=== PATIENT | female | born 1980 | race Caucasian/White ===

== ENCOUNTER 2021-11-04 18:55 | Emergency (ER) | payer OTHER, SELFPAY ==
[2021-11-04 19:13] VITALS: BP 154/93; PULSE 85; RESP 18; TEMP 36.7; O2SAT 96; BMI 46.7
--- NOTE | 2021-11-04 21:00 | ED.GENADULT ---
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 She noted that the rash is circular and has been growing. She does not report fevers, chills, diaphoresis or weakness. Onset (ago): day(s) (1) Location: right and lower extremity Radiation: non-radiation Severity: mild Severity scale (1-10): 3 Quality: burning Pain Consistency: constant Relieving factors: none Exacerbating factors: none Associated symptoms: denies other symptoms Treatments prior to arrival: none Related Data Previous Rx's Medication Instructions Recorded doxycycline monohydrate 100 mg 100 mg PO BID 14 days #28 caps 11/04/21 capsule Allergies Allergy/AdvReac Type Severity Reaction Status Date / Time codeine [CODEINE] Allergy Intermediate RASH Verified 11/04/21 19:13 latex [LATEX] Allergy Intermediate RASH Verified 11/04/21 19:13 Review of Systems Review of Systems: Constitutional: No Fever, No Chills ENT/Mouth: No Ear Pain, No Hoarseness, No sore throat Eyes: No Eye Pain, No Swelling, No Redness, No Foreign Body Cardiovascular: No Chest Pain, No SOB Respiratory: No Cough, No Dyspnea Gastrointestinal: No Nausea, No Vomiting, No Diarrhea, No abdominal Pain Genitourinary: No Dysuria, No Hematuria Musculoskeletal: No joint pain, No Myalgias, No Joint Swelling Skin: No Skin lacerations, positive rash to right lower extremity Neuro: No Weakness, No Numbness, No Paresthesias, No Loss of Consciousness, No Dizziness, No Headache Psych: No Anxiety/Panic, No Depression Heme/Lymph: no easy bruising, no Lymphadenopathy Endocrine: No Polyuria, No Polydipsia Yes all other systems are reviewed and are negative [facility] Past Medical History Attestation statement: The following information was validated with the patient. Source: old records reviewed Social History Social History Advance Directives: No Advance Directives Information Provided: No Physical Exam ED Vital Signs: Vital Signs - 24 hr 11/04/21 19:13 Temperature 98.0 F Pulse Rate 85 Respiratory Rate 18 Blood Pressure 154/93 H Pulse Oximetry 96 Oxygen Delivery Method Room Air BMI result Body Mass Index 46.7 Appearance: Alert. Oriented X3. No acute distress. Eyes: Pupils equal, round and reactive to light. ENT: Pharynx normal. Neck: Normal inspection. Neck supple. CVS: Normal heart rate and rhythm. Pulses normal. Respiratory: No respiratory distress. Breath sounds normal. Abdomen: Soft and nontender. Skin: 4 cm in diameter circular rash consistent with erythema migrans, Skin warm and dry. Normal skin color. Normal skin turgor. Extremities: No lower extremity edema. Gait well-balanced well coordinated. Neuro: No motor deficit. No sensory deficit. Cranial nerves 2-12 intact. Course Course Course Narrative: 41-year-old female presents with a Bull's-eye rash consistent with erythema migrans or cellulitis to the right popliteal. Noted rash this morning, after an unknown insect bite while gardening. I did offer patient Lyme testing however she no longer has insurance coverage. Patient does not report fevers, chills, diaphoresis or weakness at this time. Will treat with doxycycline. I did discuss doxycycline photosensitive reaction and need for sunscreen and long sleeves. Patient does understand that if symptoms worsen that she must return. Patient verbalized understanding of and agrees to plan of care discharge home. Verbalized understanding of signs and symptoms indicating need for emergent intervention. Medical Decision Making Differential Diagnosis Differential Diagnosis: Cellulitis, Lyme Medical Records Medical records reviewed: Yes I reviewed the patient's medical records. Discharge Plan Discharge Clinical Impression: Insect bite, Cellulitis Patient Disposition: Home, Self-Care Instructions: Cellulitis (ED), Tick Bite (ED) Additional Instructions: You were evaluated for insect bite to the left popliteal. Please take doxycycline 100 mg twice a day for the next 14 days. This medication has a photosensitive reaction. Please wear hat, sunscreen and long sleeves while going out into the sun. Follow-up with primary care provider as needed. If symptoms worsen please return to the emergency department. Thank you for choosing this emergency department for evaluation. Please follow-up with primary care physician as needed. Return to the emergency department for any new, concerning, or worsening symptoms. Prescriptions: New doxycycline monohydrate 100 mg capsule 100 mg PO BID 14 Days Qty: 28 0RF Interventions: ED Discharge Assessment Last Done: 11/04/21 22:10 Discharge Date/Time: 11/04/21 22:11
== END 2021-11-04 22:11 | disposition home or self-care (01) ==
PROVIDERS: Emergency Provider Emergency Medicine; PCP Nurse Practitioner Adult Health
DX: L03.115 Cellulitis of right lower limb (principal)
CPT/HCPCS: 99282

== ENCOUNTER 2023-07-04 19:25 | Inpatient (IN) | payer OTHER, SELFPAY ==
[2023-07-04 20:33] VITALS: BP 138/83; PULSE 122; RESP 18; TEMP 37.3; O2SAT 94; BMI 53.3
--- NOTE | 2023-07-04 20:38 | ED.GENADULT ---
HPI - General Adult General Chief complaint: General Medical Stated complaint: ?Infected tattoo/Fever Time Seen by Provider: 07/04/23 21:18 Source: patient Mode of arrival: ambulatory Limitations: no limitations History of Present Illness HPI narrative: Patient apparently had big tattoo placed on her left arm 4 days ago within 24 hours other placement patient noticed pain and redness which continued to get worse having chills feeling weak and tired on arrival patient's temperature was 102 degrees. No history of bacteremia Related Data Previous Rx's Medication Instructions Recorded doxycycline monohydrate 100 mg 100 mg PO BID 14 days #28 caps 11/04/21 capsule Allergies Allergy/AdvReac Type Severity Reaction Status Date / Time codeine [CODEINE] Allergy Intermediate RASH Verified 07/04/23 20:33 latex [LATEX] Allergy Intermediate RASH Verified 07/04/23 20:33 Review of Systems Review of Systems: Yes all other systems are reviewed and are negative [facility] Social History Social History Smoked in Last 30 Days: No Use of substances other than those prescribed or required for medical reasons: No Advance Directives: No Advance Directives Information Provided: No Patient : No Physical Exam ED Vital Signs: Vital Signs - 24 hr 07/04/23 20:33 Temperature 99.2 F Pulse Rate 122 H Respiratory Rate 18 Blood Pressure 138/83 Pulse Oximetry 94 Oxygen Delivery Method Room Air BMI result Body Mass Index 53.3 Appearance: Alert. Oriented X3. No acute distress. Eyes: PERRLA, No Nystagmus ENT: Pharynx normal. Oral Mucosa moist Neck: Normal inspection. Neck supple. CVS: Tachycardic Pulses normal. Respiratory: No respiratory distress. Equal air entry bilateral, no wheezing/rales/rhonchi Abdomen: Soft and nontender. Bowel sounds are present, no mass palpable, no CVA tenderness Skin: Skin warm and dry. Cellulitic changes left arm around the area of the tattoo Extremities: No lower extremity edema. No calf tenderness Neuro: Oriented X 3. Course Course Course Narrative: This is an RME: Additional HPI, ROS, PE not included below will be deferred to primary provider. Patient is a 43-year-old female who presents emergency department for evaluation of concern for potential infection after having a recent tattoo to the left upper arm at a reportedly reputable tattoo shop. Tattoo was done 4 days ago. She has been having fevers at home, is tachycardic. Has extensive swelling and redness surrounding. 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 Medications Administered Generic Name Dose Route Start Last Admin Trade Name Freq PRN Reason Stop Dose Admin Enoxaparin Sodium 40 mg 07/04/23 22:00 07/04/23 23:00 Enoxaparin Sodium 40 Mg/0.4 Ml Syringe SUBCUT Not Given Q12H ABRIL Sodium Chloride 3 ml 07/05/23 00:00 07/05/23 00:07 0.9 % Sodium Chloride Flush 3 Ml Syringe IVFLUSH 3 ml QSHIFT ABRIL Administration Discontinued Medications Generic Name Dose Route Start Last Admin Trade Name Freq PRN Reason Stop Dose Admin Sodium Chloride 1,000 mls @ 999 mls/hr 07/04/23 21:33 07/04/23 21:43 Ns IV 07/04/23 22:33 999 mls/hr .Q1H1M ONE Administration Vancomycin HCl 2,000 mg in 500 mls @ 250 mls/hr 07/04/23 21:33 07/05/23 00:02 Vancomycin/Ns IV 07/04/23 23:32 250 mls/hr ONCE ONE Administration Ceftriaxone Sodium 2 gm/ 50 mls @ 100 mls/hr 07/04/23 21:33 07/05/23 00:03 Sodium Chloride IV 07/04/23 22:02 Infused ONCE ONE Infusion Medical Decision Making Medical Decision Making [facility] Narrative: Patient has significant nonpurulent left arm cellulitis with fever leukocytosis and tachycardia meeting the criteria for sepsis but not in septic shock patient received IV fluids and IV antibiotics will admit Differential Diagnosis Differential Diagnoses: The differential diagnosis associated with the presentation includes Cellulitis/abscess/infected wound Consult Healthcare Provider Management of the patient was discussed with: Hospitalist Lab Data [facility] Lab Attestation statement: I reviewed the patient's lab results. 07/04/23 20:40 07/04/23 20:40 Labs: Lab Results 07/04/23 Range/Units 20:40 WBC 17.5 H (4.8-10.8) X10*3/uL RBC 4.61 (4.20-5.50) X10*6/uL Hgb 14.6 (12.0-16.0) g/dl Hct 42.3 (37.0-47.0) % MCV 91.8 (80.0-98.0) fL MCH 31.7 (27.0-33.0) pg MCHC 34.5 (31.0-35.0) g/dl RDW 11.9 (11.0-16.0) % Plt Count 226 (160-400) X10*3/uL MPV 10.7 (9.4-12.3) fL Immature Gran % (Auto) 0.5 H (0.0-0.4) % Neut % (Auto) 92.7 H (45-73) % Lymph % (Auto) 1.4 L (20-40) % [place] % (Auto) 4.8 (2-11) % Eos % (Auto) 0.4 (0-4) % Baso % (Auto) 0.2 (0-2) % Lymph # (Auto) 0.2 L (1.2-4.9) X10*3/uL [place] # (Auto) 0.8 (0.1-1.2) X10*3/uL Eos # (Auto) 0.1 (0.0-0.4) X10*3/uL Baso # (Auto) 0.0 (0.0-0.2) X10*3/uL Abs Immat Gran (auto) 0.08 H (0.00-0.03) X10*3/uL Absolute Neuts (auto) 16.2 H (2.0-8.3) x10*3/uL Absolute Nucleated RBC 0.000 (0.0-0.012) X10*3/uL Nucleated RBC % (auto) 0.0 (0.0-0.2) /100WBC Smear Tech's Comments VERIFIED Sodium 134 L (135-145) mmol/L Potassium 4.0 (3.3-5.1) mmol/L Chloride 101 (96-108) mmol/L Carbon Dioxide 25 (22-29) mmol/L Anion Gap 12 (12-20) BUN 9 (9-16) mg/dL Creatinine 0.95 (0.5-1.4) mg/dL Estim Creat Clear Calc 117.5 Estimated GFR > 60 Random Glucose 130 H (60-115) mg/dL Lactic Acid 1.1 (0.5-2.0) mmol/L Calcium 8.9 (8.4-10.2) mg/dL Total Bilirubin 1.6 H (0.0-1.0) mg/dL AST 18 (5-31) U/L ALT 31 (0-31) U/L Alkaline Phosphatase 72 (39-117) U/L Total Protein 7.5 (6.5-8.0) g/dL Albumin 3.9 (3.5-5.0) g/dL Critical Care Time Critical Care Time Critical Care Time: Yes Total Critical Care Time: 45 Attestation: The patient was critically ill with a high probability of imminent or life threatening deterioration. I spent greater than ?50??minutes of discontinuous time evaluating the patient,delivering critical care at the bedside, discussing and evaluating pertinent data with consultants. Critical care time does not include time spent performing separately billable procedures or teaching. Total time spent performing critical care was 45???minutes. Discharge Plan Discharge Clinical Impression: Cellulitis Patient Disposition: Admitted As Inpatient Interventions: Admission Worksheet (ED) Last Done: 07/05/23 00:50
[2023-07-04 20:51] LABS: Basophils Percent Auto 0.2 % (0-2); Eosinophils Absolute Auto 0.1 X10*3/uL (0.0-0.4); Eosinophils Percent Auto 0.4 % (0-4); Hematocrit 42.3 % (37.0-47.0); Hemoglobin 14.6 g/dl (12.0-16.0); Imm Gran Abs Auto 0.08 X10*3/uL (0.00-0.03); Imm Gran Pct Auto 0.5 % (0.0-0.4); Lymphocytes Absolute Auto 0.2 X10*3/uL (1.2-4.9); Lymphocytes Percent Auto 1.4 % (20-40); MANUAL DIFF FLAG SCAN; Mean Corpuscular HGB Conc 34.5 g/dl (31.0-35.0); Mean Corpuscular Hemoglobin 31.7 pg (27.0-33.0); Mean Corpuscular Volume 91.8 fL (80.0-98.0); Mean Platelet Volume 10.7 fL (9.4-12.3); Monocytes Absolute Auto 0.8 X10*3/uL (0.1-1.2); Monocytes Percent Auto 4.8 % (2-11); Neutrophils Absolute Auto 16.2 x10*3/uL (2.0-8.3); Neutrophils Percent Auto 92.7 % (45-73); Platelet Count 226 X10*3/uL (160-400); Red Blood Count 4.61 X10*6/uL (4.20-5.50); Red Cell Distribution Width 11.9 % (11.0-16.0); SCAN SMEAR FLAG 1; White Blood Count 17.5 X10*3/uL (4.8-10.8)
[2023-07-04 21:01] LABS: Lactic Acid 1.1 mmol/L (0.5-2.0)
[2023-07-04 21:03] LABS: Alanine Aminotransferase 31 U/L (0-31); Albumin Level 3.9 g/dL (3.5-5.0); Alkaline Phosphatase 72 U/L (39-117); Anion Gap 12 (12-20); Aspartate Amino Transferase 18 U/L (5-31); Bilirubin Total 1.6 mg/dL (0.0-1.0); Blood Urea Nitrogen 9 mg/dL (9-16); Calcium 8.9 mg/dL (8.4-10.2); Carbon Dioxide 25 mmol/L (22-29); Chloride 101 mmol/L (96-108); Creatinine Clr Calc Pharmacy 117.5; Estimated Glomerular Filt Rate > 60; Glucose Random 130 mg/dL (60-115); Sodium 134 mmol/L (135-145); Total Protein 7.5 g/dL (6.5-8.0)
[2023-07-04 21:09] LABS: SLIDE REVIEW VERIFIED
[2023-07-04] MEDS: 0.9 % Sodium Chloride 1,000 ML 999 ML IV (21:43)
[2023-07-04] MEDS: cefTRIAXone sodium 2 GM in 0.9 % Sodium Chloride 50 ML IV (21:43)
--- NOTE | 2023-07-04 21:44 | P.HPHOSP_ITS ---
History of Present Illness Date of Service: 07/04/23 Chief Complaint: Arm infection This is a 43-year-old female with pertinent history of obesity, mood disorder, MOMO on CPAP who presents to the emergency department for concerns of left arm infection. Patient states she got a tattoo on her left arm 3 days prior to presentation. She noticed that her left arm was red, swollen and warm 1 due prior to presentation. Had associated fevers and chills. This has never happened before with previous tattoos. Also had an episode of nausea and nonbloody emesis. No chest discomfort, palpitations, shortness of breath, abdominal pain, changes in urinary or bowel habits. In the emergency department, significant swelling and redness found over left arm. WBC 17.5 and patient was found to be tachycardic. Review of Systems 2 Constitutional: Constitutional: Reports chills, Reports fever(s), Reports malaise and Reports weakness Cardiovascular: Cardiovascular: Reports no additional cardiovascular complaints Respiratory: Respiratory: Reports no additional respiratory complaints Gastrointestinal: Gastrointestinal: Reports no additional gastrointestinal complaints Genitourinary: Genitourinary: Reports no additional female genitourinary complaints Neurologic: Reports weakness [facility] Medical History Obstructive sleep apnea Mood disorder Pertinent family history: No family history of early CAD Social History Smoked in Last 30 Days: No Use of substances other than those prescribed or required for medical reasons: No Advance Directives: No Advance Directives Information Provided: No Patient : No Meds Allergies Allergy/AdvReac Type Severity Reaction Status Date / Time codeine [CODEINE] Allergy Intermediate RASH Verified 07/04/23 20:33 latex [LATEX] Allergy Intermediate RASH Verified 07/04/23 20:33 Active Medications: Current Medications Sodium Chloride (Ns) 1,000 mls @ 999 mls/hr IV .Q1H1M ONE Stop: 07/04/23 22:33 Last Admin: 07/04/23 21:43 Dose: 999 mls/hr Vancomycin HCl (Vancomycin/Ns) 2,000 mg in 500 mls @ 250 mls/hr IV ONCE ONE Stop: 07/04/23 23:32 Ceftriaxone Sodium 2 gm/ (Sodium Chloride) 50 mls @ 100 mls/hr IV ONCE ONE Stop: 07/04/23 22:02 Last Admin: 07/04/23 21:43 Dose: 100 mls/hr Physical Exam 2 Vital Signs and Narrative: Vital Signs: Last Vital Signs Temp 99.2 F 07/04/23 20:33 Pulse 122 H 07/04/23 20:33 Resp 18 07/04/23 20:33 BP 138/83 07/04/23 20:33 Pulse Ox 94 07/04/23 20:33 O2 Del Method Room Air 07/04/23 20:33 BMI result Body Mass Index 53.3 Middle-aged female lying in bed in no distress Neck supple, no JVD Regular rate and rhythm, S1-S2 heard Regular breath sounds bilaterally, no wheezing or crackles appreciated Abdomen soft nontender, no guarding, no rigidity Patient is awake, alert and oriented to self, place, time and person ; no focal motor deficit Psych: Normal mood Skin: Left arm with swelling, erythema, warmth and tenderness with tattoo Results Labs 07/04/23 20:40 07/04/23 20:40 Labs: Laboratory Results - last 24 hr 07/04/23 20:40 MCV 91.8 MCH 31.7 MCHC 34.5 RDW 11.9 Plt Count 226 MPV 10.7 Immature Gran % (Auto) 0.5 H Neut % (Auto) 92.7 H Lymph % (Auto) 1.4 L [place] % (Auto) 4.8 Eos % (Auto) 0.4 Baso % (Auto) 0.2 Lymph # (Auto) 0.2 L [place] # (Auto) 0.8 Eos # (Auto) 0.1 Baso # (Auto) 0.0 Abs Immat Gran (auto) 0.08 H Absolute Neuts (auto) 16.2 H Absolute Nucleated RBC 0.000 Nucleated RBC % (auto) 0.0 Smear Tech's Comments VERIFIED Anion Gap 12 Estim Creat Clear Calc 117.5 Estimated GFR > 60 Random Glucose 130 H Lactic Acid 1.1 Calcium 8.9 Total Bilirubin 1.6 H AST 18 ALT 31 Alkaline Phosphatase 72 Total Protein 7.5 Albumin 3.9 Assessment and Plan (1) Cellulitis: Status: Acute Plan This is a 43-year-old female with pertinent history of obesity, mood disorder, MOMO on CPAP who presents to the emergency department for concerns of left arm infection. #. Sepsis due to left arm nonpurulent cellulitis: Resuscitated with IV crystalloids. Initiating empiric IV vancomycin. Lactic acid and blood culture obtained. Monitor for improvement #. Mood disorder: Continue home Zoloft #. Obesity: Counseled regarding diet and exercise DVT prophylaxis: Lovenox Full code Admit as inpatient and will require two night minimum hospital stay for IV antibiotics (as above), which is not possible in a lesser acute setting. Quality Stroke Does the patient have a stroke diagnosis?: No VTE Prior VTE?: No VTE Risk Level:: Medical - moderate - high VTE Device Contraindication: Treatment Not Indicated VTE Drug Contraindication: N/A - Med Ordered
--- NOTE | 2023-07-04 22:22 | PC.NURSE ---
Vanco administration delayed due to slow administration of prior medication.
[2023-07-05] VITALS: BP 123/76; PULSE 107; RESP 16
[2023-07-05] MEDS: vancomycin/NS 2,000 MG/500 ML PLAST..BAG 250 MG IV (00:02)
[2023-07-05] MEDS: 0.9 % Sodium Chloride Flush 3 ML SYRINGE IVFLUSH ×2 (00:07→16:30)
[2023-07-05 02:43] VITALS: BMI 53.3
[2023-07-05 02:44] VITALS: BP 128/80; PULSE 110; RESP 18; TEMP 36.8; O2SAT 94
[2023-07-05 05:58] LABS: MANUAL DIFF FLAG NO
[2023-07-05 06:04] LABS: Basophils Percent Auto 0.1 % (0-2); Eosinophils Absolute Auto 0.2 X10*3/uL (0.0-0.4); Eosinophils Percent Auto 1.5 % (0-4); Hematocrit 37.8 % (37.0-47.0); Hemoglobin 13.1 g/dl (12.0-16.0); Imm Gran Abs Auto 0.06 X10*3/uL (0.00-0.03); Imm Gran Pct Auto 0.5 % (0.0-0.4); Lymphocytes Absolute Auto 0.5 X10*3/uL (1.2-4.9); Lymphocytes Percent Auto 4.2 % (20-40); Mean Corpuscular HGB Conc 34.7 g/dl (31.0-35.0); Mean Corpuscular Hemoglobin 31.6 pg (27.0-33.0); Mean Corpuscular Volume 91.1 fL (80.0-98.0); Mean Platelet Volume 10.9 fL (9.4-12.3); Monocytes Absolute Auto 0.8 X10*3/uL (0.1-1.2); Monocytes Percent Auto 6.9 % (2-11); Neutrophils Absolute Auto 10.4 x10*3/uL (2.0-8.3); Neutrophils Percent Auto 86.8 % (45-73); Platelet Count 175 X10*3/uL (160-400); Red Blood Count 4.15 X10*6/uL (4.20-5.50); Red Cell Distribution Width 11.9 % (11.0-16.0)
[2023-07-05 06:22] LABS: Anion Gap 11 (12-20); Blood Urea Nitrogen 9 mg/dL (9-16); Calcium 8.4 mg/dL (8.4-10.2); Carbon Dioxide 25 mmol/L (22-29); Chloride 103 mmol/L (96-108); Estimated Glomerular Filt Rate > 60; Glucose Random 108 mg/dL (60-115); Potassium 3.8 mmol/L (3.3-5.1); Sodium 135 mmol/L (135-145)
--- NOTE | 2023-07-05 07:11 | PHA.MEDREC ---
Pharmacy Consult ? Medication Reconciliation Pharmacy has reviewed the medication reconciliation.
[2023-07-05 08:00] VITALS: BP 118/69; PULSE 91; RESP 18; TEMP 36.9; O2SAT 96
[2023-07-05] MEDS: Sertraline HCL 50 MG TABLET PO (09:31)
[2023-07-05] MEDS: vancomycin HCL 1,250 MG in 0.9 % Sodium Chloride 250 ML 166.67 MG IV ×2 (09:31→21:31)
--- NOTE | 2023-07-05 11:04 | HO.PM.IMPN ---
Subjective Subjective Date of Service: 07/05/23 Review of Systems Follow up left arm cellulitis Better today no pain Physical Exam Vital Signs: Vital Signs: Last Vital Signs Temp 98.5 F 07/05/23 08:00 Pulse 91 07/05/23 08:00 Resp 18 07/05/23 08:00 BP 118/69 07/05/23 08:00 Pulse Ox 96 07/05/23 08:00 O2 Del Method Room Air 07/05/23 08:00 BMI result Body Mass Index 53.3 Appearing in no acute distress lung sounds are clear to auscultation heart regular rate rhythm, clear S1, S2 positive bowel sounds, abdomen is soft, nontender neuro patient is alert x3, no focal deficits Left arm edema and erythema Objective Data Active Medications Acetaminophen (Acetaminophen 325 Mg Tablet) 650 mg PO Q6H PRN PRN Reason: Pain, Mild (Pain Scale 1-3) Enoxaparin Sodium (Enoxaparin Sodium 40 Mg/0.4 Ml Syringe) 40 mg SUBCUT Q12H [facility] Last Admin: 07/05/23 09:34 Dose: Not Given Documented By: FRANCINE Non-Admin Reason: Patient Refused Vancomycin HCl 1,250 mg/ (Sodium Chloride) 250 mls @ 166.667 mls/hr IV Q12H [facility] Last Admin: 07/05/23 09:31 Dose: 166.67 mls/hr Documented By: FRANCINE Melatonin (Melatonin 3 Mg Tablet) 6 mg PO BEDTIME PRN PRN Reason: Insomnia Ondansetron HCl (Ondansetron Hcl 4 Mg/2 Ml Vial) 4 mg IVPUSH Q8H PRN PRN Reason: Nausea and Vomiting Pharmacy Consult (Consult Rx Vancomycin Dosing) 1 each MISCELLANE DAILY PRN PRN Reason: Consult order Sertraline HCl (Sertraline Hcl 50 Mg Tablet) 50 mg PO DAILY [facility] Last Admin: 07/05/23 09:31 Dose: 50 mg Documented By: FRANCINE Sodium Chloride (0.9 % Sodium Chloride Flush 3 Ml Syringe) 3 ml IVFLUSH QSHIFT [facility] Last Admin: 07/05/23 08:41 Dose: Not Given Documented By: FRANCINE Non-Admin Reason: IV Running Labs 07/05/23 05:42 07/05/23 05:42 Labs: Laboratory Results - last 24 hr 07/04/23 07/05/23 20:40 05:42 MCV 91.8 91.1 MCH 31.7 31.6 MCHC 34.5 34.7 RDW 11.9 11.9 Plt Count 226 175 MPV 10.7 10.9 Immature Gran % (Auto) 0.5 H 0.5 H Neut % (Auto) 92.7 H 86.8 H Lymph % (Auto) 1.4 L 4.2 L [place] % (Auto) 4.8 6.9 Eos % (Auto) 0.4 1.5 Baso % (Auto) 0.2 0.1 Lymph # (Auto) 0.2 L 0.5 L [place] # (Auto) 0.8 0.8 Eos # (Auto) 0.1 0.2 Baso # (Auto) 0.0 0.0 Abs Immat Gran (auto) 0.08 H 0.06 H Absolute Neuts (auto) 16.2 H 10.4 H Absolute Nucleated RBC 0.000 0.000 Nucleated RBC % (auto) 0.0 0.0 Smear Tech's Comments VERIFIED Anion Gap 12 11 L Estim Creat Clear Calc 117.5 143.0 Estimated GFR > 60 > 60 Random Glucose 130 H 108 Lactic Acid 1.1 Calcium 8.9 8.4 Total Bilirubin 1.6 H AST 18 ALT 31 Alkaline Phosphatase 72 Total Protein 7.5 Albumin 3.9 Assessment and Plan (1) Obstructive sleep apnea: Status: Acute (2) Cellulitis: Status: Acute Plan This is a 43-year-old female with pertinent history of obesity, mood disorder, MOMO on CPAP who presents to the emergency department for concerns of left arm infection. Sepsis due to left arm nonpurulent cellulitis Resuscitated with IV crystalloids. IV vancomycin. Lactic acid normal and blood culture obtained. Monitor for improvement Mood disorder Continue home Zoloft Morbid Obesity. BMI 53.3 Counseled regarding diet and exercise DVT prophylaxis: Lovelulux Attending Dr. Patrick Full code continue hospital stay for IV antibiotics (as above), which is not possible in a lesser acute setting. Quality Stroke Does the patient have a stroke diagnosis?: No VTE Prior VTE?: No VTE Risk Level:: Medical - moderate - high VTE Device Contraindication: Treatment Not Indicated VTE Drug Contraindication: N/A - Med Ordered
[2023-07-05 15:31] VITALS: BP 136/74; PULSE 88; RESP 18; TEMP 37.1; O2SAT 95
[2023-07-05] MEDS: Acetaminophen 325 MG TABLET 650 MG PO (19:14)
[2023-07-05 20:33] LABS: Vancomycin Random 6.3 mcg/mL (15-20)
--- NOTE | 2023-07-05 21:08 | HE.PHANOTE ---
RE MIKE Changing dose to 1250 mg q8h due to low trough after two. Will get a level tomorrow. Pt obese, may dose dump. Good option for linezolid possibly? Suspected trough 11, AUC 538 SHAAN
[2023-07-05 23:28] VITALS: BP 112/60; PULSE 75; RESP 16; TEMP 36.2; O2SAT 95
[2023-07-06] MEDS: 0.9 % Sodium Chloride Flush 3 ML SYRINGE IVFLUSH ×4 (01:19→23:41)
[2023-07-06] MEDS: vancomycin HCL 1,250 MG in 0.9 % Sodium Chloride 250 ML 166.67 MG IV ×3 (05:58→22:01)
[2023-07-06 07:08] VITALS: BP 122/65; PULSE 74; RESP 16; TEMP 36.1; O2SAT 96
[2023-07-06] MEDS: Sertraline HCL 50 MG TABLET PO (07:29)
--- NOTE | 2023-07-06 08:41 | MHC.CM.PN ---
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
--- NOTE | 2023-07-06 09:25 | P.PNIM_ITS ---
Subjective Subjective Date of Service: 07/06/23 Review of Systems Follow up left arm cellulitis Better today no pain Physical Exam 2 Vital Signs: Vital Signs: Last Vital Signs Temp 97 F 07/06/23 07:08 Pulse 74 07/06/23 07:08 Resp 16 07/06/23 07:08 BP 122/65 07/06/23 07:08 Pulse Ox 96 07/06/23 07:08 O2 Del Method Room Air 07/06/23 07:08 BMI result Body Mass Index 53.3 Appearing in no acute distress lung sounds are clear to auscultation heart regular rate rhythm, clear S1, S2 positive bowel sounds, abdomen is soft, nontender neuro patient is alert x3, no focal deficits Objective Data Active Medications Acetaminophen (Acetaminophen 325 Mg Tablet) 650 mg PO Q6H PRN PRN Reason: Pain, Mild (Pain Scale 1-3) Last Admin: 07/05/23 19:14 Dose: 650 mg Documented By: ALEXANDREA Enoxaparin Sodium (Enoxaparin Sodium 40 Mg/0.4 Ml Syringe) 40 mg SUBCUT Q12H [facility] Last Admin: 07/05/23 21:36 Dose: Not Given Documented By: ALEXANDREA Non-Admin Reason: Patient Refused Vancomycin HCl 1,250 mg/ (Sodium Chloride) 250 mls @ 166.667 mls/hr IV Q8H [facility] Last Infusion: 07/06/23 07:31 Dose: Infused Documented By: FRANCINE Melatonin (Melatonin 3 Mg Tablet) 6 mg PO BEDTIME PRN PRN Reason: Insomnia Ondansetron HCl (Ondansetron Hcl 4 Mg/2 Ml Vial) 4 mg IVPUSH Q8H PRN PRN Reason: Nausea and Vomiting Pharmacy Consult (Consult Rx Vancomycin Dosing) 1 each MISCELLANE DAILY PRN PRN Reason: Consult order Sertraline HCl (Sertraline Hcl 50 Mg Tablet) 50 mg PO DAILY [facility] Last Admin: 07/06/23 07:29 Dose: 50 mg Documented By: FRANCINE Sodium Chloride (0.9 % Sodium Chloride Flush 3 Ml Syringe) 3 ml IVFLUSH QSHIFT [facility] Last Admin: 07/06/23 07:29 Dose: 3 ml Documented By: FRANCINE Labs 07/05/23 05:42 07/05/23 05:42 Labs: Laboratory Results - last 24 hr 07/05/23 07/06/23 20:08 09:03 Hold Purple Top SEE NOTE Random Vancomycin 6.3 L Microbiology Microbiology Results: Microbiology 07/04/23 21:23 Blood Culture - Preliminary Blood - Venous No growth after 24 hours. 07/04/23 20:40 Blood Culture - Preliminary Blood - Venous No growth after 24 hours. Assessment and Plan (1) Obstructive sleep apnea: Status: Acute (2) Cellulitis: Status: Acute Plan This is a 43-year-old female with pertinent history of obesity, mood disorder, MOMO on CPAP who presents to the emergency department for concerns of left arm infection. Sepsis due to left arm nonpurulent cellulitis Resuscitated with IV crystalloids. continue IV vancomycin. Lactic acid normal neg blood cx after 24hrs Monitor for improvement Mood disorder Continue home Zoloft Morbid Obesity. BMI 53.3 Counseled regarding diet and exercise DVT prophylaxis: Joao Attending Dr. Patrick Full code continue hospital stay for IV antibiotics (as above), which is not possible in a lesser acute setting. Quality Stroke Does the patient have a stroke diagnosis?: No VTE Prior VTE?: No VTE Risk Level:: Medical - moderate - high VTE Device Contraindication: Treatment Not Indicated VTE Drug Contraindication: N/A - Med Ordered
[2023-07-06 12:17] LABS: Creatinine Clr Calc Pharmacy 164.1; Estimated Glomerular Filt Rate > 60
[2023-07-06 15:17] VITALS: BP 129/80; PULSE 80; RESP 18; TEMP 36.4; O2SAT 95
[2023-07-06 20:07] VITALS: BP 120/68; PULSE 85; RESP 16; TEMP 36.2; O2SAT 95
[2023-07-06 21:17] LABS: Vancomycin Random 12.5 mcg/mL (15-20)
--- NOTE | 2023-07-06 21:35 | HE.PHANOTE ---
Vancomycin dosing Level 12.5 today. Continue current regimen. Next Level 07/06 @ 1999. Dionne MonsonD
[2023-07-07 04:02] VITALS: BP 111/63; PULSE 74; RESP 16; TEMP 36; O2SAT 95
[2023-07-07 06:09] LABS: Creatinine Clr Calc Pharmacy 150.7; Estimated Glomerular Filt Rate > 60
[2023-07-07] MEDS: vancomycin HCL 1,250 MG in 0.9 % Sodium Chloride 250 ML 166.67 MG IV (06:14)
[2023-07-07 07:58] VITALS: BP 117/65; PULSE 72; RESP 16; TEMP 36; O2SAT 96
[2023-07-07] MEDS: Sertraline HCL 50 MG TABLET PO (08:51)
--- NOTE | 2023-07-07 10:18 | PM.DS ---
DS: Providers Provider Date of Service: 07/07/23 Date of admission: 07/04/23 22:43 Primary care physician: Joselin Urbina NP DS: Diagnosis Discharge Diagnosis (1) Obstructive sleep apnea: Status: Acute (2) Cellulitis: Status: Acute DS: Summary Hospital Course Hospital Course: History and physical as per admitting provider. This is a 43-year-old female with pertinent history of obesity, mood disorder, MOMO on CPAP who presents to the emergency department for concerns of left arm infection. Patient states she got a tattoo on her left arm 3 days prior to presentation. She noticed that her left arm was red, swollen and warm 1 due prior to presentation. Had associated fevers and chills. This has never happened before with previous tattoos. Also had an episode of nausea and nonbloody emesis. No chest discomfort, palpitations, shortness of breath, abdominal pain, changes in urinary or bowel habits. In the emergency department, significant swelling and redness found over left arm. WBC 17.5 and patient was found to be tachycardic. 43-year-old woman treated for sepsis secondary to on purulence cellulitis from a tattoo to her left arm. She was treated with IV vancomycin, negative blood cultures after 48 hours. Erythema and edema improved significantly after 3 days of IV antibiotics. Plan is for discharge home with 5 more days of doxycycline and Augmentin. She may wash with warm soapy water and use non fragrance emollients for moisture. Plan is for discharge home and patient is in agreement all questions answered to patient's satisfaction. Mental health. Continue Zoloft Morbid obesity. Discussed importance of weight management as this may be contributing to worsening of other comorbidities Time Attestation Discharge Coordination Time (in mins): 45 Quality: Safe Use of Opioids Does Pt have an Active Cancer Diagnosis on the Problem List?: No Quality: Stroke Does the patient have a stroke diagnosis?: No Physical Exam Vital Signs: Vital Signs: Last Vital Signs Temp 96.8 F 07/07/23 07:58 Pulse 72 07/07/23 07:58 Resp 16 07/07/23 07:58 BP 117/65 07/07/23 07:58 Pulse Ox 96 07/07/23 07:58 O2 Del Method Room Air 07/07/23 07:58 BMI result Body Mass Index 53.3 Appearing in no acute distress head is normocephalic atraumatic eyes pupils are PERRLA sclera is anicteric mouth throat mucous membranes are intact and moist neck is supple no lymphadenopathy, no JVD noted lung sounds are clear to auscultation heart regular rate rhythm, clear S1, S2 positive bowel sounds, abdomen is soft, nontender neuro patient is alert x3, no focal deficits Mild edema and erythema to left arm with some scaling from dry areas of tatoo DS: Data Data Completed and Pending Labs on day of discharge: Laboratory Results - last 24 hr 07/06/23 07/06/23 07/07/23 09:03 20:40 05:35 Hold Purple Top SEE NOTE Creatinine 0.68 0.74 Estim Creat Clear Calc 164.1 150.7 Estimated GFR > 60 > 60 Random Vancomycin 12.5 L Preliminary micro results at discharge 07/04/23 21:23 Blood Culture - Preliminary Blood - Venous No growth after 48 hours. 07/04/23 20:40 Blood Culture - Preliminary Blood - Venous No growth after 48 hours. Discharge Plan Discharge Anticipated Discharge Date/Time: 07/07/23 09:44 Patient Disposition: Home, Self-Care Discharge Diagnosis: Left arm cellulitis Sepsis Referrals: Joselin Urbina NP [Primary Care Provider] - 1 Week Discharge Medications: New doxycycline hyclate 100 mg tablet 100 mg PO BID Qty: 10 0RF amoxicillin-pot clavulanate 875-125 mg tablet 1 tab PO BID Qty: 10 0RF Continued Zoloft 50 mg PO DAILY Discharge Orders: Discharge Order (Routine); Ordered 07/07/23 Ordered By: Era Wadsworth Diet: Advance to usual diet Activity on Discharge: As tolerated Stand Alone Forms: Patient Portal Discharge page, Work/School Release Care Plan Goals: May wash area with soap and water, apply non scented emollient such as Eucerin to dry areas Health Concerns: Left arm cellulitis Sepsis Plan of Treatment: Follow-up with primary care provider as needed Take all medications as prescribed Assessment: See discharge summary
--- NOTE | 2023-07-07 10:22 | MHC.CM.PN ---
DP: PT HAS BEEN MEDICALLY CLEARED FOR DC HOME, NO SERVICES. PT HAS OWN RIDE HOME
== END 2023-07-07 11:02 | disposition home or self-care (01) | DRG 603 ==
LOC: HO.ED 21:49 → HO.EDOVER 23:36 → HO.S3 07-05 00:39
PROVIDERS: Nurse Practitioner Family; Admitting Provider Student in an Organized Health Care Education/Training Program; Emergency Provider Internal Medicine; PCP Nurse Practitioner Adult Health; Visit Provider Nurse Practitioner Acute Care
DX: L03.114 Cellulitis of left upper limb (principal); Z68.43 Body mass index [BMI] 50.0-59.9, adult; F39 Unspecified mood [affective] disorder; E66.01 Morbid (severe) obesity due to excess calories; G47.33 Obstructive sleep apnea (adult) (pediatric); Z91.040 Latex allergy status; Z79.899 Other long term (current) drug therapy
CPT/HCPCS: 36415; 80048; 80053; 80202; 82565; 83605; 85025; 87040; 99285; J0696; J3370; J3371

== ENCOUNTER → 2023-07-04 22:43 | Outpatient (BNV) | payer OTHER, SELFPAY | PROVIDERS: Admitting Provider Student in an Organized Health Care Education/Training Program; Emergency Provider Internal Medicine; PCP Nurse Practitioner Adult Health; Visit Provider Student in an Organized Health Care Education/Training Program | DX: G47.33 Obstructive sleep apnea (adult) (pediatric) (principal); L03.90 Cellulitis, unspecified | CPT/HCPCS: 99222; 99232; 99239 ==